=== PATIENT | female | born 1995 | race Caucasian/White ===

== ENCOUNTER 2016-10-08 10:38 | Emergency (ER) | payer SELFPAY ==
[~2016-10-08 10:38] MED LIST: BIST PO; D.O.S.100 MG PO; HABIT21 TOP; MELA3 PO; PCET PO; ULTRAM50 PO; ZYVOXPO PO
== END 2016-10-08 15:11 | disposition home or self-care (01) ==
LOC: ER 10:38
DX: S91.312A Laceration without foreign body, left foot, initial encounter (principal); F17.200 Nicotine dependence, unspecified, uncomplicated; Z79.899 Other long term (current) drug therapy; W45.8XXA Other foreign body or object entering through skin, initial encounter
CPT/HCPCS: 90471; 90714; 96372; 99283; A9270-GY; J1885